=== PATIENT | female | born 1965 | race Caucasian/White ===

== ENCOUNTER → 2025-02-03 06:56 | Outpatient (REF) | payer OTHER, SELFPAY | LOC: PAVMRI 06:56 | PROVIDERS: ATTENDING PHYSICIAN Physician Assistant; FAMILY PHYSICIAN Internal Medicine; REFERRING PHYSICIAN Neurological Surgery | DX: M54.2 Cervicalgia (principal); R20.0 Anesthesia of skin | CPT/HCPCS: 72141 ==

== ENCOUNTER 2025-03-27 06:51 | Outpatient (RCR) | payer OTHER, SELFPAY | END 2025-03-27 23:59 | disposition home or self-care (01) | LOC: RPT 06:51 | PROVIDERS: ATTENDING PHYSICIAN Physician Assistant; FAMILY PHYSICIAN Internal Medicine | DX: M54.2 Cervicalgia (principal); R20.0 Anesthesia of skin; Z73.6 Limitation of activities due to disability; M62.81 Muscle weakness (generalized); S06.0X0D Concussion without loss of consciousness, subsequent encounter; R29.3 Abnormal posture; W10.1XXD Fall (on)(from) sidewalk curb, subsequent encounter; M43.22 Fusion of spine, cervical region | CPT/HCPCS: 72050; 97110; 97162 ==

== ENCOUNTER 2025-04-13 10:09 | Emergency (ER) | payer OTHER, SELFPAY ==
[2025-04-13 10:18] VITALS: BP 107/72
--- NOTE | 2025-04-13 11:21 | EDRN ---
Dr. Adams in to see pt.
--- NOTE | 2025-04-13 11:30 | ED.GENMED ---
History of Present Illness
General
Chief Complaint: Musculo-Skeletal Complaint
Time Seen by Provider: 04/13/25 10:58
History of Present Illness
History of Present Illness:
59-year-old female without significant past medical history presenting for left foot pain. Patient reports yesterday her foot got caught on a rug and she hyperextended her foot. She has since had pain at the medial lateral aspect of the proximal
foot. Denies numbness or tingling. Denies any additional injuries. She did not take any medication for pain. Denies known prior injuries to her foot. Patient denies additional acute medical complaints
Past History
Past History
ED Past Surgical History: Orthopedic and Tonsilectomy
Social History
Tobacco: Non-smoker
Alcohol: Binge drinker
Phy Exam
Physical Exam
Physical Exam:
General: Well-appearing, no clinical signs of dehydration, nontoxic and in no acute distress
HEENT: protecting airway
Neck: appears supple
CV: Normal heart rate
Resp: No accessory muscle use, no increased work of breathing
Abd: No distention
Extremities: Swelling and ecchymosis to the left foot with generalized tenderness. Distal sensation and pulses intact. Range of motion limited secondary to pain. No obvious deformity. No erythema or warm
Neuro: alert, no focal neurologic deficit
: deferred
Rectal: deferred
Psych: Normal affect
Skin: Intact
Course
Orders/Labs/Results
Orders:
Orders
04/13/25 10:25
CR Foot - Left Min 3 Views Urgent
Comment: hyperextended foot
Reason For Exam: pain,injury,swelling bruising
04/13/25 11:27
Splints/Slings/Crut- Treatment ONCE
Ketorolac [Toradol] 15 mg IM NOW STA
Vital Signs
Initial and Last Documented VS:
Initial Vital Signs
Temp Pulse Resp BP Pulse Ox
98.7 F 86 16 107/72 97
04/13/25 10:18 04/13/25 10:18 04/13/25 10:18 04/13/25 10:18 04/13/25 10:18
Last Documented Vital Signs
Temp Pulse Resp BP Pulse Ox
98.7 F 86 16 107/72 97
04/13/25 10:18 04/13/25 10:18 04/13/25 10:18 04/13/25 10:18 04/13/25 10:18
MDM/Problems Addressed
MDM/Problems Addressed:
59-year-old female presenting for left foot pain and swelling after hyperextension. Vital signs are normal.
On exam patient noted to have generalized ecchymosis and tenderness to palpation without deformity. Concern for fracture to the foot. No infectious findings. No neurovascular compromise. X-ray obtained which is consistent with nondisplaced
fractures to the talus and navicular bone with possible avulsion fracture to the calcaneus. Given these findings, will place patient in a short leg stirrup splint with nonweightbearing status. Plan for outpatient orthopedic follow-up. Advised
continue Tylenol or Motrin as needed for pain. Return precautions discussed and patient verbalized understanding
*Pulse Oximetry
SaO2: 97
Oxygen Mode of Delivery: Room air
Patient hypoxic: no
*Critical Care Note
Total Time (30-74mins, 75-104mins- exclusive of procedures): Not Applicable
ED Attending Note
-
Portions of this chart may have been created with voice recognition software.� Occasional wrong word or��sound alike� substitutions may have occurred due to the inherent limitations of voice recognition software.
Discharge Plan
Departure
Prescriptions:
No Action
multivitamin [Multi-Day] 1 EACH tablet
1 ea PO DAILY
hydroxyzine pamoate [Vistaril] 50 mg Capsule
50 mg PO QID PRN (Reason: anxiety)
Rx Instructions:
Alternates between 25mg and 50mg depending on level of anxiety
hydroxyzine pamoate [Vistaril] 25 mg Capsule
25 mg PO QID PRN (Reason: anxiety)
Rx Instructions:
Alternates between 25mg and 50mg depending on level of anxiety
Interventions
Interventions:
*Risk Screen - Suicide Last Done: 04/13/25 10:18
Discharge Date and Time
Print Language: SETSWANA
[2025-04-13] MEDS: TORADOL 15 MG IM (11:36)
[2025-04-13 11:51] VITALS: BP 123/83
[2025-04-13 11:52] VITALS: BMI 24.0
--- NOTE | 2025-04-13 11:54 | EDRN ---
Dr. Adams in to see pt.
== END 2025-04-13 12:14 | disposition home or self-care (01) ==
LOC: EMR 10:09
PROVIDERS: EMERGENCY PHYSICIAN Student in an Organized Health Care Education/Training Program; FAMILY PHYSICIAN Internal Medicine
DX: S92.252A Displaced fracture of navicular [scaphoid] of left foot, initial encounter for closed fracture (principal); S92.152A Displaced avulsion fracture (chip fracture) of left talus, initial encounter for closed fracture; S92.022A Displaced fracture of anterior process of left calcaneus, initial encounter for closed fracture; X50.1XXA Overexertion from prolonged static or awkward postures, initial encounter
CPT/HCPCS: 99284; 96372; 29515; 73630

== ENCOUNTER → 2025-04-25 09:24 | Outpatient (REF) | payer OTHER, SELFPAY | LOC: HWWDC 09:24 | PROVIDERS: ATTENDING PHYSICIAN Student in an Organized Health Care Education/Training Program; FAMILY PHYSICIAN Internal Medicine | DX: Z12.31 Encounter for screening mammogram for malignant neoplasm of breast (principal) | CPT/HCPCS: 77063; 77067 ==

== ENCOUNTER 2025-05-29 22:38 | Emergency (ER) | payer OTHER, SELFPAY ==
[2025-05-29 22:38] VITALS: BMI 19.2
[2025-05-29 22:40] VITALS: BP 135/87
[2025-05-30] VITALS: BP 104/62
--- NOTE | 2025-05-30 00:02 | ED.GENMED ---
History of Present Illness
General
Chief Complaint: Head Injury
Source: patient
Exam Limitations: none
Time Seen by Provider: 05/29/25 23:57
Nursing documentation reviewed up to this point in time: agreed with
History of Present Illness
History of Present Illness:
60-year-old female with history of bipolar, of alcohol abuse, anxiety/depression presents obviously intoxicated, speech slightly slurred, admits to drinking '3 glasses' of wine has been in rehab for alcoholism in the past. When asked why she is
here she starts rubbing her right eye that appears ecchymotic with purplish green color, no swelling, she states it 'happened' 2 days ago but refuses to tell me what happened, 'I don't want to talk about it.' I asked if she was interested in rehab
and she states she is not, she just wants to make sure her head is okay because she has been nauseated, has not vomited. Denies change in vision, neck or back pain. Denies CP, SOB, abdominal pain.
Past History
Past History
ED Past Surgical History: Orthopedic and Tonsilectomy
Social History
Tobacco: Non-smoker
Alcohol: Binge drinker
Review of Systems
Review of Systems
Allergies reviewed?: Yes
All Other Systems: ROS reviewed and negative except as documented in HPI and ROS
Constitutional: Denies fever
Respiratory: Denies trouble breathing
Cardiac: Denies chest pain
ABD/GI: Reports nausea; Denies abdominal pain or vomiting
Musculoskeletal: Denies neck pain or back pain
Skin: Reports other (ecchymosis right eye soft tissueof upper and lower lids)
Phy Exam
Physical Exam
Physical Exam:
GENERAL: No acute distress. A&Ox3.
CONSTITUTIONAL: Afebrile.
EYES: clear, conjunctivae normal
ENMT: moist mucus membranes, Pharynx nl
RESPIRATORY: Regular respirations, nonlabored, lungs clear.
CARDIOVASCULAR: Regular rate and rhythm, no murmurs, no rubs.
GI: Soft, nontender, normal BS
MUSCULOSKELETAL: Moves with ease. Well perfused. Ortho boot on left foot from previous injury
SKIN: Warm, dry, pink
PSYCH: Normal mood and affect. Well kept, interactive and appropriate
NEUROLOGIC: Awake, alert and oriented. No tremors. Calm. Speech slightly slurred. No focal neurological deficits. Finger to nose intact.
Scores
Withdrawal Assessment of Alcohol
Withdrawal Assessment Completed?: Yes
Nausea and Vomiting: Mild nausea with no vomiting
Tactile Disturbances: None
Tremor: No tremor
Auditory Disturbances: Not present
Paroxysmal Sweats: No sweat visible
Visual Disturbances: Not present
Anxiety: No anxiety, at ease
Headache, Fullness in Head: Mild
Agitation: Normal activity
Orientation and clouding of sensorium: Oriented and can do serial additions
Total CIWA Score: 3
Alcohol Withdrawal Medication Recommendation: Equal to MSAS Score 0-4. Monitor & re-assess q2hrs, NO MEDICATION NEEDED
Course
Orders/Labs/Results
Orders:
Orders
05/30/25 00:09
CT Head W/o Iv Contrast Urgent
Comment: pt nauseous, won't say what happened 2 days ago
Reason For Exam: right eye eccymosis, from injury 2 days ago
05/30/25 00:10
CT Orbits W/o Iv Contrast Urgent
Comment:
Reason For Exam: R eye ecchymosis from injury
Vital Signs
Initial and Last Documented VS:
Initial Vital Signs
Temp Pulse Resp BP Pulse Ox
98.2 F 82 16 135/87 98
05/29/25 22:40 05/29/25 22:40 05/29/25 22:40 05/29/25 22:40 05/29/25 22:40
Last Documented Vital Signs
Temp Pulse Resp BP Pulse Ox
98.2 F 86 16 104/62 98
05/30/25 00:00 05/30/25 00:00 05/30/25 00:00 05/30/25 00:00 05/30/25 00:04
MDM/Problems Addressed
Differential Diagnosis Includes:
intoxication, alcohol withdrawal
Orbital contusion vs fracture
Concussion, brain bleed
MDM/Problems Addressed:
60-year-old female with history of bipolar, alcohol abuse, anxiety/depression presents obviously intoxicated, speech slightly slurred, admits to drinking '3 glasses' of wine has been in rehab for alcoholism in the past. When asked why she is here
she starts rubbing her right eye that appears ecchymotic with purplish green color, no swelling, she states it 'happened' 2 days ago but refuses to tell me what happened, 'I don't want to talk about it.' I asked if she was interested in rehab and
she states she is not, she just wants to make sure her head is okay because she has been nauseated has not vomited. Denies change in vision, neck or back pain. Denies CP, SOB, abdominal pain.
I asked if there was anything else I could do for her and she said 'no.' She agrees she is ok to go home as long as her head CT is OK.
Asked if she thinks she's going through withdrawal and states 'yes' when asked why states: 'I don't know if it's because I banged the back of my head...' Remains vague about circumstances surrounding her injury. Her only symptom is nausea.
MSAS score 3, no treatment recommended, observe only, reassess q 2 hours
05/30/25 12:30 a.m.
Head and orbit CT's show nothing acute
Discussed with Dr. Smyth who reviewed head and orbit CT nothing acute
Awaiting official read
Pt daughter will be here to pick her up
*Pulse Oximetry
SaO2: 98
Oxygen Mode of Delivery: Room air
ED Attending Note
-
Portions of this chart may have been created with voice recognition software.� Occasional wrong word or��sound alike� substitutions may have occurred due to the inherent limitations of voice recognition software.
Discharge Plan
Departure
Patient Disposition: Home (Routine Discharge)
Date of Disposition: 05/30/25
Time of Disposition: 01:07
Patient with high blood pressure during this ER visit?: No
Condition: Good
Discharge Problem:
Head injury, Contusion of right orbit
Instructions: Head Injury in Adults (DC)
Prescriptions:
No Action
multivitamin [Multi-Day] 1 EACH tablet
1 ea PO DAILY
hydroxyzine pamoate [Vistaril] 50 mg Capsule
50 mg PO QID PRN (Reason: anxiety)
Rx Instructions:
Alternates between 25mg and 50mg depending on level of anxiety
hydroxyzine pamoate [Vistaril] 25 mg Capsule
25 mg PO QID PRN (Reason: anxiety)
Rx Instructions:
Alternates between 25mg and 50mg depending on level of anxiety
ibuprofen 600 mg tablet
600 mg PO Q6H PRN (Reason: Pain) Qty: 20 0RF
oxycodone-acetaminophen [Endocet] 5-325 mg tablet
1 tab PO Q8H PRN (Reason: Pain) Qty: 6 0RF
Referrals:
Luis Aden MD [Family Provider, Internal Medicine]
Interventions
Interventions:
*General Assessment Last Done: 05/30/25 00:18
*Neglect/Abuse Screening Last Done: 05/29/25 22:40
*ED COVID-19 Vaccine History Last Done: 05/30/25 00:18
*ED Influenza Vaccine History Last Done: 05/30/25 00:18
[facility] Fall Risk Assessment Tool Last Done: 05/29/25 22:38
*Risk Screen - Suicide (C-SSRS) Last Done: 05/29/25 22:40
ED- Neurological Assessment Last Done: 05/30/25 00:17
ED-Skin Assessment Last Done: 05/30/25 00:17
Discharge Date and Time
Print Language: LUXEMBOURGER
== END 2025-05-30 02:10 | disposition home or self-care (01) ==
LOC: EMR 22:38
PROVIDERS: EMERGENCY PHYSICIAN Emergency Medicine; FAMILY PHYSICIAN Internal Medicine
DX: S05.11XA Contusion of eyeball and orbital tissues, right eye, initial encounter (principal); X58.XXXA Exposure to other specified factors, initial encounter; F10.20 Alcohol dependence, uncomplicated
CPT/HCPCS: 99284; 70450; 70480

== ENCOUNTER 2025-06-01 23:40 | Emergency (ER) | payer OTHER, SELFPAY ==
[2025-06-02 00:16] VITALS: BP 138/97
[2025-06-02 00:54] LABS: Hematocrit 38.8 % (37.0-47.0); Hemoglobin 13.4 g/dL (12.0-16.0); Mean Corp Hgb Conc. 34.5 g/dL (33.0-37.0); Mean Corpuscular Volume 98.2 fL (81.0-99.0); Nucleated Red Blood Cells % 0 %; Platelet Count 161 10^3/uL (130-400); Red Cell Dist. Width 13.6 % (11.5-14.5)
[2025-06-02 01:14] LABS: ALT (SGPT) 84 U/L (0-35); AST (SGOT) 103 U/L (14-36); Albumin 4.7 g/dl (3.5-5.0); Alkaline Phosphatase 81 U/L (38-126); Blood Urea Nitrogen 13 mg/dl (7-17); Calcium 9.0 mg/dl (8.4-10.2); Carbon Dioxide 30 mmol/L (22-30); Chloride 106 mmol/L (98-107); Glucose 98 mg/dl (70-99); Potassium 4.4 mmol/L (3.5-5.1); Sodium 146 mmol/L (135-145); Total Protein 7.6 g/dl (6.3-8.2); eGFR > 60.00
[2025-06-02 02:23] VITALS: BP 134/87
--- NOTE | 2025-06-02 03:12 | EDRN ---
Pt ambulatory out in hallway multiple times, questioning where her daughter is. Pt limping with an ortho boot on her left foot. Attempted to call daughter, no response. Registration desk reports that pt's daughter left a note with them with her
phone number and to call when she's ready to be picked up ([phone])
Pt telling this RN that she 'needs something, something so I don't have a seizure, you have to give me the drugs so I don't seize.' Pt holds out her hands and flaps them back and forth saying 'look I'm shaking.' When placing her hands back down, no
tremors noted. Informed pt of her elevated alcohol level, to which pt says 'that's impossible, I only had two drinks at 4pm.' Alcohol odor prevalent.
Awaiting ED vocational rehabilitation consultant, pt on stretcher at this time.
--- NOTE | 2025-06-02 04:05 | EDRN ---
pt back out in hallway asking if this RN to address her nausea despite drinking a full water bottle and a cup of ice water. This RN reminded pt that she needs to wait to be seen by an ED provider. Pt states 'since I'm an alcoholic you guys just
leave me here.' educated pt regarding acuity level, wait times, and that she is going to be seen shortly. Pt continues to ask this RN for withdrawal medications, now asking 'to be knocked out.' education provided about the inability of mixing
alcohol and sleep aids, pt responded 'well then I'm going to just see what I can do,' and returned to room.
on assessment, pt is sitting on stretcher with call swan in reach.
--- NOTE | 2025-06-02 04:45 | EDRN ---
Dr Cardona at bedside
--- NOTE | 2025-06-02 04:49 | ED.GENMED ---
History of Present Illness
General
Chief Complaint: Alcohol Problem
Source: patient and previous hospital records
Exam Limitations: none
Time Seen by Provider: 06/02/25 04:14
Nursing documentation reviewed up to this point in time: agreed with
History of Present Illness
History of Present Illness:
HISTORY OF PRESENT ILLNESS
The patient is a 60-year-old female with a history of bipolar disorder and alcohol use disorder. She was evaluated in the emergency department four days ago after admitting to alcohol consumption and reporting an injury to her right temporal region
two days earlier. A computed tomography scan of the head and orbits was negative for acute changes. At that time, she declined further alcohol rehabilitation, despite having undergone rehab previously. The patient presents tonight, reporting
symptoms consistent with alcohol withdrawal, and noted her last alcoholic drink was at 4 p.m.
She had been sober for several years but after a relationship break-up she began drinking alcohol again approximately 3 months ago.
She believes she can regain sobriety on her own. She presents tonight with complaints of alcohol withdrawal symptoms requesting something to help with her shakes. She also notes nausea but has had no vomiting.
She states she has good support systems at home including her daughter.
She denies drug use.
She has been offered [facility] tissue recovery technician evaluation, offered inpatient rehab which she adamantly declines.
Past History
Past History
ED Past Medical History: Psychiatric and Other (Alcohol abuse)
ED Past Surgical History: Orthopedic and Tonsilectomy
Social History
Tobacco: Non-smoker
Alcohol: Binge drinker
Drug: None
Personal: Single
Living: with family
Family History
Family History: Other (Noncontributory)
Phy Exam
Physical Exam
Physical Exam:
GENERAL: 60-year-old woman appears somewhat older than stated age. Thin build. She is bright and alert, oriented x 3. Mildly tremulous but easily communicative.
EYE: pupils equal and reactive. anicteric
NECK: Supple, nontender, no meningismus, no significant adenopathy.
ENT: oral mucosa is moist. No rhinorrhea.
CARDIAC: Regular rate and rhythm. no murmur.
LUNGS: Clear breath sounds bilaterally, no acute respiratory distress, no wheezes/rales/rhonchi
ABDOMEN: Soft, nondistended, without focal tenderness, no r/g, no cvat. normoactive BS.
NEUROLOGICAL: Alert and oriented x3, no focal neuro deficits. Gait is steady. Mildly tremulous.
SKIN: Warm and dry, normal color, skin intact. No rash.
MUSCULOSKELETAL: No C/C/E. peripheral pulses are full and equal b/l. No palpable tenderness.
PSYCH: Normal and appropriate interaction.
Scores
Withdrawal Assessment of Alcohol
Withdrawal Assessment Completed?: Yes
Nausea and Vomiting: Mild nausea with no vomiting
Tactile Disturbances: None
Tremor: Moderate, with patient's arms extended
Auditory Disturbances: Not present
Paroxysmal Sweats: No sweat visible
Visual Disturbances: Not present
Anxiety: Mild anxiety
Headache, Fullness in Head: Not present
Agitation: Moderately fidgety and restless
Orientation and clouding of sensorium: Oriented and can do serial additions
Total CIWA Score: 10
Alcohol Withdrawal Medication Recommendation: Equal to MSAS Score 5-7. Lorazepam 1mg IV or PO NOW & re-assess q2hrs
Course
Orders/Labs/Results
Orders:
Orders
06/02/25 00:26
Alcohol Urgent
Complete Blood Count/With Diff Urgent
Comprehensive Metabolic Panel Urgent
06/02/25 04:48
Lorazepam [Ativan] 1 mg PO NOW STA
Metoclopramide [Reglan] 10 mg PO NOW STA
Abnormal Lab Results
06/02/25
00:26
RBC 3.95 L 10^6/uL
(4.20-5.40)
MCH 33.9 H pg
(27.0-31.0)
Sodium 146 H mmol/L
(135-145)
AST 103 H U/L
(14-36)
ALT 84 H U/L
(0-35)
Alcohol, Quantitative 408 H* mg/dl
06/02/25 00:26
06/02/25 00:26
Vital Signs
Initial and Last Documented VS:
Initial Vital Signs
Temp Pulse Resp BP Pulse Ox
98.5 F 97 16 138/97 98
06/02/25 00:16 06/02/25 00:16 06/02/25 00:16 06/02/25 00:16 06/02/25 00:16
Last Documented Vital Signs
Temp Pulse Resp BP Pulse Ox
98.5 F 97 16 138/97 98
06/02/25 00:16 06/02/25 00:16 06/02/25 00:16 06/02/25 00:16 06/02/25 04:54
MDM/Problems Addressed
Differential Diagnosis Includes:
DIFFERENTIAL DIAGNOSIS
The Differential Diagnosis includes, in no particular order and is not limited to:
1. Alcohol withdrawal syndrome
2. Bipolar disorder exacerbation
3. Head trauma complications
4. Delirium tremens
5. Acute alcohol intoxication
6. Anxiety disorder
7. Substance-induced mood disorder
8. Depression
9. Panic disorder
10. Insomnia related to alcohol use disorder
MDM/Problems Addressed:
PROBLEM LIST
Acute Problems:
- Alcohol withdrawal
Chronic Problems:
- Bipolar disorder
- Alcohol use disorder
Patient appears mildly uncomfortable. Mild to moderate alcohol withdrawal with COWS score of 10.
She adamantly declines tissue recovery technician evaluation. Declines inpatient rehabilitation despite lengthy discussion.
She believes she can regain sobriety on her own and has successfully done this multiple times in the past.
Will give an oral dose of Ativan as well as Reglan and continue to observe.
*Pulse Oximetry
SaO2: 98
Oxygen Mode of Delivery: Room air
Patient hypoxic: no
*Critical Care Note
Total Time (30-74mins, 75-104mins- exclusive of procedures): Not Applicable
Update Note
Update Note:
06:50
After 1 oral dose of Ativan and Reglan patient has been sleeping soundly.
Awakens easily. Admits to feeling markedly improved.
I again offered [facility] consult which she continues to decline. Patient will be provided with her contact information.
Will prescribe a short, tapering course of Serax as patient appears eager to regain sobriety and believes she can do this on her own.
She plans to call her daughter to pick her up.
Return precautions discussed.
ED Attending Note
-
Portions of this chart may have been created with voice recognition software.� Occasional wrong word or��sound alike� substitutions may have occurred due to the inherent limitations of voice recognition software.
Discharge Plan
Departure
Patient Disposition: Home (Routine Discharge)
Date of Disposition: 06/02/25
Time of Disposition: 07:00
Patient with high blood pressure during this ER visit?: No
Condition: Good
Discharge Problem:
Alcohol abuse, Early alcohol withdrawal
Instructions: Alcohol Withdrawal (DC), Alcohol Use Disorder (DC)
Prescriptions:
New
oxazepam 15 mg capsule
15 mg PO TID PRN (Reason: alcohol withdraw) Qty: 12 0RF
No Action
multivitamin [Multi-Day] 1 EACH tablet
1 ea PO DAILY
hydroxyzine pamoate [Vistaril] 50 mg Capsule
50 mg PO QID PRN (Reason: anxiety)
Rx Instructions:
Alternates between 25mg and 50mg depending on level of anxiety
hydroxyzine pamoate [Vistaril] 25 mg Capsule
25 mg PO QID PRN (Reason: anxiety)
Rx Instructions:
Alternates between 25mg and 50mg depending on level of anxiety
ibuprofen 600 mg tablet
600 mg PO Q6H PRN (Reason: Pain) Qty: 20 0RF
oxycodone-acetaminophen [Endocet] 5-325 mg tablet
1 tab PO Q8H PRN (Reason: Pain) Qty: 6 0RF
Referrals:
Luis Aden MD [Family Provider, Internal Medicine] - Call in 1-3 days for appt
Interventions
Interventions:
*General Assessment Last Done: 06/02/25 00:16
*ED COVID-19 Vaccine History Last Done: 06/02/25 00:16
*ED Influenza Vaccine History Last Done: 06/02/25 00:16
*Risk Screen - Suicide (C-SSRS) Last Done: 06/02/25 00:16
Discharge Date and Time
Print Language: CAMEROONIAN
[2025-06-02] MEDS: ATIVAN 1 MG PO (04:54)
[2025-06-02] MEDS: REGLAN 10 MG PO (04:54)
== END 2025-06-02 08:27 | disposition home or self-care (01) ==
LOC: EMR 23:40
PROVIDERS: EMERGENCY PHYSICIAN Emergency Medicine; FAMILY PHYSICIAN Internal Medicine
DX: F10.139 Alcohol abuse with withdrawal, unspecified (principal); F31.9 Bipolar disorder, unspecified
CPT/HCPCS: 99283; 80053; 82077; 85025